=== PATIENT | female | born 1990 | race Caucasian/White ===

== ENCOUNTER 2018-02-10 22:57 | Emergency (ER) | payer OTHER ==
--- NOTE | 2018-02-11 00:37 | ER Document Report ---
ED General - General Chief Complaint: Headache Stated Complaint: HEADACHE Time Seen by Provider: 02/11/18 00:29 Notes: Patient is a 27-year-old female comes emergency department for chief complaint of a feeling of pain and fullness at and around but specifically behind her right ear. She also states that earlier she felt like she was having palpitations, got lightheaded, and had to lie down. She denies passing out, chest pain, shortness of breath, vomiting, fever. Patient states she is on Keflex for an infection that was diagnosed at her right ear which she started taking 4 days ago, she states that the red painful area has actually gone down and almost completely resolved. She takes no daily medications otherwise except for as needed for reflux. She denies smoking, alcohol, recreational drugs. TRAVEL OUTSIDE OF THE [place] IN LAST 30 DAYS: No - Related Data Allergies/Adverse Reactions: No Known Allergies Allergy (Unverified 02/10/18 23:02) Past Medical History - General Information source: Patient - Social History Smoking Status: Never Smoker Frequency of alcohol use: None Drug Abuse: None Lives with: Family Family History: Reviewed & Not Pertinent - Medical History Medical History: Negative Surgical Hx: Negative - Immunizations Immunizations up to date: Yes Hx Diphtheria, Pertussis, Tetanus Vaccination: Yes Review of Systems - Review of Systems Constitutional: See HPI EENT: See HPI Cardiovascular: No symptoms reported Respiratory: No symptoms reported Gastrointestinal: No symptoms reported Genitourinary: No symptoms reported Female Genitourinary: No symptoms reported Musculoskeletal: No symptoms reported Skin: See HPI Hematologic/Lymphatic: No symptoms reported Neurological/Psychological: See HPI Physical Exam - Vital signs Vitals: Temp Pulse Resp BP Pulse Ox 97.7 F 86 18 132/91 H 98 02/10/18 23:04 02/10/18 23:04 02/10/18 23:04 02/10/18 23:04 02/10/18 23:04 - Notes Notes: GENERAL: Alert, interacts well. No acute distress. HEAD: Normocephalic, atraumatic. EYES: Pupils equal, round, and reactive to light. Extraocular movements intact. ENT: Oral mucosa moist, tongue midline. Nares patent, no nasal septal hematoma. Upper helix of the right ear with mild erythema, no significant tenderness, no fluctuance or induration, ear canal is normal, tympanic membrane is normal. Posterior auricular adenopathy on the right side. Tender to palpation but no abnormal heat, severe tenderness, induration, or other abnormality noted. NECK: Full range of motion. Supple. Trachea midline. LUNGS: Clear to auscultation bilaterally, no wheezes, rales, or rhonchi. No respiratory distress. HEART: Regular rate and rhythm. No murmur ABDOMEN: Soft, non-tender. Non-distended. Bowel sounds present in all 4 quadrants. EXTREMITIES: Moves all 4 extremities spontaneously. No edema, normal radial and dorsalis pedis pulses bilaterally. No cyanosis. BACK: no cervical, thoracic, lumbar midline tenderness. No saddle anesthesia, normal distal neurovascular exam. NEUROLOGICAL: Alert and oriented x3. Normal speech. [cranial nerves II through XII grossly intact]. PSYCH: Normal affect, normal mood. SKIN: Warm, dry, normal turgor. No rashes or lesions noted. Course - Re-evaluation Re-evalutation: Mild erythema over the upper helix of the right ear, appears to be resolving infection, no induration or fluctuance. Ear canal and tympanic membrane are normal. There is posterior auricular lymphadenopathy which is expected. Patient denying current lightheadedness. CBC, chemistry unremarkable. Urinalysis shows mildly elevated specific gravity but nonspecific. Patient was given IV fluids. EKG sinus rhythm with no acute abnormality, normal AK interval. Thyroid screening is unremarkable. Patient with no palpitations on my evaluation. Discussed lightheadedness/palpitations, treatment, decision was made to treat patient for her lymphadenopathy with dexamethasone here, patient will complete antibiotic course, discussed follow-up and return precautions, patient states satisfaction and agreement. - Vital Signs Vital signs: Temp Pulse Resp BP Pulse Ox 97.9 F 86 18 121/83 97 02/11/18 02:47 02/10/18 23:04 02/10/18 23:04 02/11/18 02:47 02/11/18 02:47 - Laboratory Result Diagrams: 02/11/18 00:35 02/11/18 00:35 Laboratory results interpreted by me: 02/11/18 01:00 Urine Blood SMALL H Discharge - Discharge Clinical Impression: Lightheadedness, Right ear pain Condition: Stable Disposition: HOME, SELF-CARE Additional Instructions: The infection appears to have cleared, complete Keflex course, you have been medicated for the painful lymph nodes surrounding this, this appears to be the cause of your pain. Your remaining workup shows some dehydration but is otherwise unremarkable. Follow-up with primary care for additional evaluation and management. Return if you worsen including passing out, chest pain, difficulty breathing, fever, swelling and redness of the ear, or any other concerning or worsening symptoms. Forms: Treatment of Relative/Child Referrals: RIA BANUELOS MD [Primary Care Provider] - Follow up as needed
[2018-02-11 00:54] LABS: ABSOLUTE EOSINOPHILS # (AUTO) 0.1 10^3/uL (0.0-0.6); ABSOLUTE LYMPHOCYTES (AUTO) 2.6 10^3/uL (0.5-4.7); ABSOLUTE MONOCYTES (AUTO) 0.6 10^3/uL (0.1-1.4); ABSOLUTE NEUT (AUTO) 3.6 10^3/uL (1.7-8.2); BASOPHILS % (AUTO) 0.5 % (0-2); EOSINOPHILS % (AUTO) 1.7 % (0-6); HEMATOCRIT 43.6 % (36.0-47.0); HEMOGLOBIN 15.2 g/dL (12.0-15.5); LYMPHOCYTES % (AUTO) 37.3 % (13-45); MEAN CORPUSCULAR HEMOGLOBIN 30.7 pg (27.0-33.4); MEAN CORPUSCULAR HGB CONC 34.8 g/dL (32.0-36.0); MEAN CORPUSCULAR VOLUME 88 fl (80-97); MONOCYTES % (AUTO) 8.6 % (3-13); PLATELET COUNT 360 10^3/uL (150-450); RED BLOOD COUNT 4.94 10^6/uL (3.72-5.28); SEGMENTED NEUTROPHILS % (AUTO) 51.9 % (42-78); TOTAL CELLS COUNTED % (AUTO) 100 %; WHITE BLOOD COUNT 6.9 10^3/uL (4.0-10.5)
[2018-02-11 01:04] LABS: ANION GAP 12 (5-19); BLOOD UREA NITROGEN 14 mg/dL (7-20); CARBON DIOXIDE 27 mmol/L (22-30); CHLORIDE 104 mmol/L (98-107); GLUCOSE 98 mg/dL (75-110); POTASSIUM 4.5 mmol/L (3.6-5.0); SODIUM 142.9 mmol/L (137-145)
[2018-02-11 01:20] LABS: FREE T4 (FREE THYROXINE) 1.25 ng/dL (0.78-2.19)
[2018-02-11 01:33] LABS: APPEARANCE,URINE SLIGHTLY-CLOUDY; BILIRUBIN,URINE NEGATIVE (NEGATIVE); COLOR,URINE YELLOW; GLUCOSE, URINE NEGATIVE (NEGATIVE); KETONES,URINE NEGATIVE (NEGATIVE); LEUKOCYTE ESTERASE,URINE NEGATIVE (NEGATIVE); NITRITE,URINE NEGATIVE (NEGATIVE); PROTEIN,URINE NEGATIVE (NEGATIVE); URINE SPECIFIC GRAVITY 1.023; UROBILINOGEN,URINE NEGATIVE mg/dL (<2.0)
[2018-02-11 01:34] LABS: THYROID STIMULATING HORMONE 2.58 uIU/mL (0.47-4.68)
[2018-02-11] MEDS ORDERED: DEXAMETHASONE SOD PHOS INJ 10 MG/1 ML VIAL IV ONE (01:35)
[2018-02-11] MEDS ORDERED: NORMAL SALINE 1000 ML 1,000 ML IV ONE (01:36)
[2018-02-11] MEDS ORDERED: KETOROLAC TROMETHAMINE INJ/PF 30 MG/1 ML SDV IV ONE (02:38)
[2018-02-11 02:54] VITALS: BP 121/83
--- NOTE | 2018-02-11 08:20 | EKG REPORT ---
SEVERITY:- OTHERWISE NORMAL ECG - SINUS RHYTHM BORDERLINE LEFT AXIS DEVIATION : Confirmed by: Neo Dias 11-Feb-2018 08:19:42
== END 2018-02-11 02:54 | disposition home or self-care (01) ==
LOC: ER 22:57
DX: H92.01 Otalgia, right ear (principal); R42 Dizziness and giddiness
CPT/HCPCS: 93005; 99285; 96361; 96374; 96375; 36415; 84439; 84443; 85025; 81025; 80048; 81001; 93010; J1885; J7030; J1100

== ENCOUNTER → 2018-07-20 | Outpatient (CLI) | payer OTHER ==
--- NOTE | 2018-07-20 13:36 | WOMENS IMAGING REPORT ---
EXAM DESCRIPTION: U/S BREAST UNILAT LIMITED COMPLETED DATE/TIME: 07/20/2018 9:19 am REASON FOR STUDY: LEFT AXILLARY PAIN M79.622 PAIN IN LEFT UPPER ARM COMPARISON: None. TECHNIQUE: Real-time and static grayscale imaging performed of the left axilla targeted to the area of clinical concern. Selected color Doppler images recorded. LIMITATIONS: None. FINDINGS: Patient indicates a tender painful area in the far upper outer quadrant/axilla. Ultrasoun d of this area demonstrates no worrisome masses, acoustic absorption or breast parenchymal cysts. In the left axilla, two benign 10 x 6 mm and 10 x 5 mm lymph nodes are present with normal lymph node cortical thickness. IMPRESSION: No suspicious findings detected by ultrasound. BIRAD: 1 Negative. RECOMMENDATION: RECOMMENDED FOLLOW-UP: Follow-up as clinically indicated. COMMENT: The [employer] (ACR) has developed recommendations for screening MRI of the breasts in certain patient populations, to be used in conjunction with mammography. Breast MRI s urveillance may be appropriate for women with more than 20% lifetime risk of developing breast cancer as determined by genetic testing, significant family history of the disease, or history of mantle r adiation for Hodgkins Disease. ACR Practice Guidelines 2008. TECHNICAL DOCUMENTATION: JOB ID: [id number] [employer] All Rights Reserved Reading location - IP/workstation name: [email or web address]
== END ==
LOC: WI 08:55
PROVIDERS: ATTEND Physician Assistant
DX: M79.622 Pain in left upper arm (principal)
CPT/HCPCS: 76642

== ENCOUNTER 2018-11-14 16:02 | Emergency (ER) | payer OTHER ==
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
[2018-11-14 17:50] VITALS: BP 138/88
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
== END 2018-11-14 18:25 | disposition home or self-care (01) ==
LOC: ER 16:02
DX: M79.602 Pain in left arm (principal); R07.9 Chest pain, unspecified; M25.512 Pain in left shoulder; V87.7XXA Person injured in collision between other specified motor vehicles (traffic), initial encounter; Z79.899 Other long term (current) drug therapy
CPT/HCPCS: 99283

== ENCOUNTER 2020-02-02 16:47 | Emergency (ER) | payer OTHER ==
[2020-02-02] MEDS ORDERED: NORMAL SALINE 1000 ML 1,000 ML IV ONE (17:15)
--- NOTE | 2020-02-02 17:34 | ER Document Report ---
ED Medical Screen (RME) - General Chief Complaint: Vaginal Bleeding Stated Complaint: VAGINAL BLEEDING/ABDOMINAL PAIN Time Seen by Provider: 02/02/20 17:05 Primary Care Provider: CADENCE GOLDEN PA-C [Primary Care Provider] - Follow up as needed Mode of Arrival: Ambulatory Information source: Patient Notes: 29-year-old female presented to ED for vaginal bleeding and pelvic pain for about an hour and a half. She states she was 13 weeks . She states that soon after she started the pelvic cramping she passed the fetus. She states she has in a box with her. She states she called [facility] and they told her to bring the fetus with her to the emergency room. She states she is still bleeding. She asked what they do genetic testing on the fetus. I did call Dr. Napier from [facility]. He stated no they would not do the testing here in the emergency room. He states they do not usually asked the mother to bring the fetus with her. Patient states she would like to be followed up as she is uncomfortable. Vital signs were elevated blood pressure and pulse. We have ordered CBC chemistry ultrasound and IV fluids. Patient is alert oriented respirations regular and unlabored speaking in full sentences. I have greeted and performed a rapid initial assessment of this patient. A comprehensive ED assessment and evaluation of the patient, analysis of test results and completion of medical decision making process will be conducted by an additional ED providers. TRAVEL OUTSIDE OF THE [place] IN LAST 30 DAYS: No - Related Data Allergies/Adverse Reactions: No Known Allergies Allergy (Verified 02/02/20 17:05) Home Medications: progesterone Past Medical History - Social History Chew tobacco use (# tins/day): No Frequency of alcohol use: None Drug Abuse: None Renal/ Medical History: Denies: Hx Peritoneal Dialysis GI Medical History: Reports: Hx Gastroesophageal Reflux Disease - Immunizations Immunizations up to date: Yes Hx Diphtheria, Pertussis, Tetanus Vaccination: Yes Physical Exam - Vital signs Vitals: Temp Pulse Resp BP Pulse Ox 98.8 F 112 H 19 147/78 H 98 02/02/20 16:52 02/02/20 16:52 02/02/20 16:52 02/02/20 16:52 02/02/20 16:52 Course - Vital Signs Vital signs: Temp Pulse Resp BP Pulse Ox 98.8 F 112 H 19 147/78 H 98 02/02/20 17:05 02/02/20 16:52 02/02/20 16:52 02/02/20 16:52 02/02/20 16:52 Doctor's Discharge - Discharge Referrals: CADENCE GOLDEN PA-C [Primary Care Provider] - Follow up as needed
[2020-02-02 17:52] LABS: ABSOLUTE LYMPHOCYTES (AUTO) 1.4 10^3/uL (0.5-4.7); ABSOLUTE MONOCYTES (AUTO) 0.6 10^3/uL (0.1-1.4); ABSOLUTE NEUT (AUTO) 13.1 10^3/uL (1.7-8.2); BASOPHILS % (AUTO) 0.1 % (0-2); EOSINOPHILS % (AUTO) 0.2 % (0-6); HEMATOCRIT 43.9 % (36.0-47.0); HEMOGLOBIN 15.3 g/dL (12.0-15.5); LYMPHOCYTES % (AUTO) 9.1 % (13-45); MEAN CORPUSCULAR HEMOGLOBIN 31.7 pg (27.0-33.4); MEAN CORPUSCULAR HGB CONC 34.9 g/dL (32.0-36.0); MEAN CORPUSCULAR VOLUME 91 fl (80-97); MONOCYTES % (AUTO) 3.9 % (3-13); PLATELET COUNT 354 10^3/uL (150-450); RED BLOOD COUNT 4.84 10^6/uL (3.72-5.28); SEGMENTED NEUTROPHILS % (AUTO) 86.7 % (42-78); TOTAL CELLS COUNTED % (AUTO) 100 %; WHITE BLOOD COUNT 15.1 10^3/uL (4.0-10.5)
[2020-02-02 18:10] LABS: ALBUMIN 4.3 g/dL (3.5-5.0); ALKALINE PHOSPHATASE 40 U/L (38-126); ANION GAP 8 (5-19); ASPARTATE AMINO TRANSFERASE 21 U/L (14-36); BILIRUBIN,TOTAL 0.6 mg/dL (0.2-1.3); BLOOD UREA NITROGEN 5 mg/dL (7-20); CALCIUM 9.4 mg/dL (8.4-10.2); CARBON DIOXIDE 23 mmol/L (22-30); CHLORIDE 104 mmol/L (98-107); GLUCOSE 96 mg/dL (75-110); POTASSIUM 4.4 mmol/L (3.6-5.0); TOTAL PROTEIN 7.4 g/dL (6.3-8.2)
--- NOTE | 2020-02-02 19:08 | RADIOLOGY REPORT (SQ) ---
EXAM DESCRIPTION: U/S 1TRIMESTER/1GEST W/DOPPLER IMAGES COMPLETED DATE/TIME: 02/02/2020 6:55 pm REASON FOR STUDY: miscarriage pain and bleeding COMPARISON: None. TECHNIQUE: Transabdominal static and realtime grayscale images acquired of the pelvis. Additional se lected spectral and color Doppler images recorded. All images stored on PACs. bHCG: Not applicable. CLINICAL DATES: LMP 11/01/2019 13 weeks 2 days LIMITATIONS: None. FINDINGS: There is a small residual gestational sac. By history the fetus was passed in the emergen cy department. There are some retained products of conception in the lower uterine segment and cervi x. UTERUS: No masses. No anomalies. CERVICAL LENGTH: 3.2 cm. Closed. RIGHT ADNEXA: Normal ovary with normal vascular flow. 6.2 x 4.3 x 6.3 cm. 4.1 x 3.6 x 4.5 cm cyst. No adnexal free fluid. No adnexal masses. LEFT ADNEXA: Ovary not seen. No adnexal free fluid. No adnexal masses. FREE FLUID: None. OTHER: No other significant finding. IMPRESSION: Miscarriage in progress. TECHNICAL DOCUMENTATION: JOB ID: [id number] 2010 [employer]- All Rights Reserved Reading location - IP/workstation name: [email or web address]
--- NOTE | 2020-02-02 19:41 | ER Document Report ---
ED General - General Chief Complaint: Vaginal Bleeding Stated Complaint: VAGINAL BLEEDING/ABDOMINAL PAIN Time Seen by Provider: 02/02/20 17:05 Primary Care Provider: CADENCE GOLDEN PA-C [Primary Care Provider] - Follow up as needed Mode of Arrival: Ambulatory TRAVEL OUTSIDE OF THE [place] IN LAST 30 DAYS: No - HPI Notes: Patient is a G2, P0 female at approximately 13 weeks gestation who presents to the emergency department for evaluation. She states she has been having cramping and spotting for the week. Got a little worse yesterday. Today she passed what she believed to be some products of conception. She had some heavy bleeding and cramping, but she states that that has improved. She has brought the fetus with her. She suffered a miscarriage in August as well. She follows with [facility]. She continues to have some vaginal bleeding. She states it was bright red. She bled through a pad, and into her pants, since arrival. That was approximately 2 and half hours ago. - Related Data Allergies/Adverse Reactions: No Known Allergies Allergy (Verified 02/02/20 17:05) Home Medications: progesterone Past Medical History - General Information source: Patient - Social History Smoking Status: Never Smoker Chew tobacco use (# tins/day): No Frequency of alcohol use: None Drug Abuse: None Family History: Reviewed & Not Pertinent, Other - Unknown genetic disorder in sister, patient screened negative Patient has homicidal ideation: No Renal/ Medical History: Denies: Hx Peritoneal Dialysis GI Medical History: Reports: Hx Gastroesophageal Reflux Disease - Immunizations Immunizations up to date: Yes Hx Diphtheria, Pertussis, Tetanus Vaccination: Yes Review of Systems - Review of Systems Female Genitourinary: See HPI -: Yes All other systems reviewed and negative Physical Exam - Vital signs Vitals: Temp Pulse Resp BP Pulse Ox 98.8 F 112 H 19 147/78 H 98 02/02/20 16:52 02/02/20 16:52 02/02/20 16:52 02/02/20 16:52 02/02/20 16:52 - Notes Notes: This is a tearful but pleasant 29-year-old female who appears her stated age, no acute distress. Vital signs reviewed, please refer to chart. Head is normocephalic, atraumatic. Pupils equal round, reactive to light. Neck is s upple without meningismus. Heart is regular rate and rhythm. Lungs are clear to auscultation bilaterally. Abdomen is soft, mildly tender in the pelvis without rebound or guarding, normoactive bowel sounds throughout. Skin is warm and dry. Patient is awake, alert, neurological exam is nonfocal. Pelvic exam performed with DUNG Anders, at the bedside. Patient had a moderate amount of bleeding, vaginal clots noted. Cervix was closed, no active material being passed, only mild bleeding noted. Course - Re-evaluation Re-evalutation: 02/02/20 19:43 Patient presents to the emergency department for evaluation. She does have prod ucts of conception with her. This will be sent to pathology for further evaluation. Will do pelvic exam to evaluate for heavy bleeding. Patient is stable, we will continue to monitor. - Vital Signs Vital signs: Temp Pulse Resp BP Pulse Ox 98.8 F 112 H 19 147/78 H 98 02/02/20 17:05 02/02/20 16:52 02/02/20 16:52 02/02/20 16:52 02/02/20 16:52 - Laboratory Result Diagrams: 02/02/20 17:25 02/02/20 17:25 Laboratory results interpreted by me: 02/02/20 02/02/20 17:25 17:25 WBC 15.1 H Lymph % (Auto) 9.1 L Absolute Neuts (auto) 13.1 H Seg Neutrophils % 86.7 H Sodium 135.4 L BUN 5 L - Diagnostic Test Radiology reviewed: Reports reviewed Radiology results interpreted by me: 02/02/20 20:36 Obstetrics Ultrasound 02/02/20 17:13 IMPRESSION: Miscarriage in progress. Discharge - Discharge Clinical Impression: Incomplete miscarriage Condition: Stable Disposition: HOME, SELF-CARE Instructions: Miscarriage ([facility]) Additional Instructions: Pelvic rest as discussed. Use pads only. If you start bleeding through more than 1 pad an hour, develop chest pain, increased pain, uncontrolled bleeding, or any other new or concerning symptoms, please return immediately to the emergency department for evaluation. Otherwise, follow-up with [facility], call tomorrow to schedule an appointment. Referrals: CADENCE GOLDEN PA-C [Primary Care Provider] - Follow up as needed
[2020-02-02] MEDS ORDERED: ONDANSETRON HCL INJ/PF 4 MG/2 ML SDV IV ONE (20:16)
[2020-02-02] MEDS ORDERED: MORPHINE SULFATE 10 MG/ML INJ IV ONE (20:16)
[2020-02-02 20:37] LABS: APPEARANCE,URINE SLIGHTLY-CLOUDY; BILIRUBIN,URINE NEGATIVE (NEGATIVE); COLOR,URINE RED; GLUCOSE, URINE NEGATIVE (NEGATIVE); KETONES,URINE 20 mg/dL (NEGATIVE); LEUKOCYTE ESTERASE,URINE SMALL (NEGATIVE); NITRITE,URINE NEGATIVE (NEGATIVE); PROTEIN,URINE 100 mg/dL (NEGATIVE); URINE SPECIFIC GRAVITY 1.009; UROBILINOGEN,URINE NEGATIVE mg/dL (<2.0)
[2020-02-02 20:47] VITALS: BP 126/74
== END 2020-02-02 20:45 | disposition home or self-care (01) ==
LOC: ER 16:47
DX: O03.4 Incomplete spontaneous abortion without complication (principal); Z79.899 Other long term (current) drug therapy
CPT/HCPCS: 99284; 96361; 96374; 96375; 36415; 85025; 80053; 81001; 76801; 93976; J2270; J2405; J7030; 88233; 88262; 88305

== ENCOUNTER → 2020-08-30 | Outpatient (CLI) | payer OTHER ==
--- NOTE | 2020-08-31 13:07 | RADIOLOGY REPORT (SQ) ---
EXAM DESCRIPTION: MRI ABDOMEN WITHOUT IMAGES COMPLETED DATE/TIME: 08/30/2020 8:48 pm REASON FOR STUDY: RIGHT LOWER QUADRANT PAIN R10.31 RIGHT LOWER QUADRANT PAIN COMPARISON: None. TECHNIQUE: Multiplanar imaging follow evaluation of the abdomen pelvis without contrast FINDINGS: Pelvis: Intrauterine fetus. 4 cm right ovarian cysts. Solid organs: Liver kidneys visualized spleen unremarkable. Bowel: Normal appendix. No bowel dilatation. Gallbladder: No identified stones. Bony skeleton: No abnormality. IMPRESSION: Normal appendix. 4 cm right ovarian cysts. Intrauterine . TECHNICAL DOCUMENTATION: JOB ID: [id number] 2010 [employer]- All Rights Reserved Reading location - IP/workstation name: [email or web address]
== END ==
LOC: RAD 16:23
PROVIDERS: ATTEND Specialist
DX: O34.80 Maternal care for other abnormalities of pelvic organs, unspecified trimester (principal); N83.201 Unspecified ovarian cyst, right side
CPT/HCPCS: 74181

== ENCOUNTER → 2020-09-13 | Outpatient (CLI) | payer OTHER ==
--- NOTE | 2020-09-13 10:13 | WOMENS IMAGING REPORT ---
EXAM DESCRIPTION: U/S BREAST UNILAT LIMITED IMAGES COMPLETED DATE/TIME: 09/13/2020 7:31 am REASON FOR STUDY: N64.4 N64.4 MASTODYNIA COMPARISON: None. TECHNIQUE: Static and Realtime grayscale interrogation of focal area(s) of concern in the right carlos st(s) acquired. Selected color doppler/spectral images saved to PACS. LIMITATIONS: None. FINDINGS: Masses:No cystic or solid masses identified Architecture:No alteration of normal morphology. No skin thickening. No edema. Other: Subtle skin thickening in the region of interest at 4- 5 o'clock in the right breast. There i s no discrete mass or fluid collection and the underlying deeper soft tissues here and regionally loo k normal. No tissue distortion. IMPRESSION: 1. Mild skin thickening in the region of clinical concern. Patient is 20 weeks and mammogra phy is not performed. Findings likely reflect developing cellulitis/ mastitis and close clinical fol lowup is warranted. BIRAD: 2 Benign findings.. RECOMMENDATION: RECOMMENDED FOLLOW-UP: Follow-up as clinically indicated. COMMENT: The [employer] (ACR) has developed recommendations for screening MRI of the breasts in certain patient populations, to be used in conjunction with mammography. Breast MRI s urveillance may be appropriate for women with more than 20% lifetime risk of developing breast cancer as determined by genetic testing, significant family history of the disease, or history of mantle r adiation for Hodgkins Disease. ACR Practice Guidelines 2008. TECHNICAL DOCUMENTATION: FINDING NUMBER: (1) ASSESSMENT: (1) JOB ID: [id number] 2010 [employer]- All Rights Reserved Reading location - IP/workstation name: [email or web address]
== END ==
LOC: WI 07:14
PROVIDERS: ATTEND Advanced Practice Midwife
DX: O99.891 Other specified diseases and conditions complicating pregnancy (principal); N64.4 Mastodynia; Z3A.20 20 weeks gestation of pregnancy
CPT/HCPCS: 76642